=== PATIENT | male | born 2000 | race Caucasian/White ===

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

== ENCOUNTER 2022-08-05 21:55 | Emergency (ER) | payer SELFPAY ==
[2022-08-05 21:57] VITALS: BP 144/77; PULSE 93; RESP 16; TEMP 37.1; O2SAT 99
--- NOTE | 2022-08-05 22:45 | ED.GENADULT ---
HPI - General Adult General Chief complaint: Animal Bite Stated complaint: cat bite Time Seen by Provider: 08/05/22 22:45 History of Present Illness HPI narrative: This is a 22-year-old male who presents to the ED with chief complaint of a cat bite that occurred just prior to arrival. The cat is known to the patient. Shots are up-to-date. Patient reports scratches to the lower legs and bilateral arms. Reports his right hand was bitten. Denies any further site of pain or injury. Related Data Allergies Allergy/AdvReac Type Severity Reaction Status Date / Time No Known Allergies Allergy Mild Verified 08/05/22 21:55 Review of Systems Review of Systems: CONSTITUTIONAL: Denies fever, chills, or sweats. EYES: Denies visual changes, redness, or discharge. ENT: Denies rhinorrhea, congestion, sore throat, or otalgia. CARDIOVASCULAR: Denies chest pain, palpitations, or edema. RESPIRATORY: Denies cough or dyspnea. GASTROINTESTINAL: Denies abdominal pain, nausea, vomiting, or diarrhea. GENITOURINARY: Denies dysuria or hematuria. SKIN: See HPI MUSCULOSKELETAL: See HPI NEUROLOGIC: Denies headache, numbness, dizziness, or weakness. PSYCHIATRIC: Denies anxiety or depression. Exam Narrative: GENERAL: Well-appearing, well-nourished, and in no acute distress. HEAD: Normocephalic, atraumatic. EYES: PERRLA and EOMI. ENT: Nares clear, no rhinorrhea or epistaxis. Mucous membranes moist. Oropharynx without tonsillar hypertrophy exudate or other lesions. NECK: Supple. No adenopathy or masses. CHEST: No respiratory distress. Clear to auscultation. No wheezes rales or rhonchi HEART: Regular rate and rhythm. No murmur heard. Normal peripheral pulses. ABDOMEN: Soft, nontender, nondistended, normal active bowel sounds. MSK: Right hand: Mild swelling around the thumb. Mild tenderness in this area as well. Bite singh lesions noted. Neurovascular intact distally. Full active and passive range of motion of the hand. Full strength. Left hand: Benign. Normal range of motion. No edema. SKIN: Several healed scratch wolff lesions to the bilateral lower legs and upper extremities as well. There is an area of swelling to the right hypothenar eminence. Warm, dry, no rash. NEURO: Alert and oriented x3. No focal deficits. PSYCH: Normal mood and affect. Course Vital Signs Vital signs: Vital Signs Temperature 98.7 F 08/05/22 21:57 Pulse Rate 93 08/05/22 21:57 Respiratory Rate 16 08/05/22 21:57 Blood Pressure 144/77 H 08/05/22 21:57 Pulse Oximetry 99 08/05/22 21:57 Oxygen Delivery Room Air 08/05/22 21:57 Temperature 98.7 F 08/05/22 21:57 Pulse Rate 93 08/05/22 21:57 Respiratory Rate 16 08/05/22 21:57 Blood Pressure 144/77 H 08/05/22 21:57 Pulse Oximetry 99 08/05/22 21:57 Oxygen Delivery Room Air 08/05/22 21:57 Medical Decision Making MDM Narrative Medical decision making narrative: This is a 22-year-old male who presents to the ED with chief complaint of a cat bite that occurred a few hours prior to arrival. Vitals are stable. Afebrile. Exam shows several lesions throughout the extremities and some swelling to the right hand. First dose of Augmentin given here. Prescription for Augmentin sent to his pharmacy. Supportive measures discussed for home. Strict return precautions were given. Patient is understanding and agreeable plan for discharge and follow-up with his PCP. Vital Signs Vital Signs: Vital Signs Temperature 98.7 F 08/05/22 21:57 Pulse Rate 93 08/05/22 21:57 Respiratory Rate 16 08/05/22 21:57 Blood Pressure 144/77 H 08/05/22 21:57 Pulse Oximetry 99 08/05/22 21:57 Oxygen Delivery Room Air 08/05/22 21:57 Temperature 98.7 F 08/05/22 21:57 Pulse Rate 93 08/05/22 21:57 Respiratory Rate 16 08/05/22 21:57 Blood Pressure 144/77 H 08/05/22 21:57 Pulse Oximetry 99 08/05/22 21:57 Oxygen Delivery Room Air 08/05/22 21:57 Discharge [place]
[2022-08-05] MEDS: AMOXICILLIN/CLAVULANATE K 875-125 MG TAB 1 TABLET PO (22:57)
== END 2022-08-05 22:59 | disposition home or self-care (01) ==
LOC: ANHED 22:52
PROVIDERS: Emergency Provider Physician Assistant
DX: S61.451A Open bite of right hand, initial encounter (principal); W55.01XA Bitten by cat, initial encounter
CPT/HCPCS: 99283; A9270